=== PATIENT | male | born 1935 | race Caucasian/White ===

== ENCOUNTER 2025-09-20 12:33 | Emergency (ER) | payer MEDICARE ==
[2025-09-20 12:58] LABS: BASOPHILS ABSOLUTE AUTO 0.0 x10^3/uL (0.0-0.2); BASOPHILS PERCENT AUTO 0.3 % (0.2-1.2); EOSINOPHILS ABSOLUTE AUTO 0.1 x10^3/uL (0.0-0.5); EOSINOPHILS PERCENT AUTO 0.9 % (0.0-4.0); IMMATURE GRAN ABSOLUTE AUTO 0.02 x10^3/uL (0.00-0.07); IMMATURE GRAN PERCENT AUTO 0.30 % (0.00-0.43); LYMPHOCYTES ABSOLUTE AUTO 2.8 x10^3/uL (1.0-4.8); LYMPHOCYTES PERCENT AUTO 42.5 % (25.0-50.0); MONOCYTES ABSOLUTE AUTO 0.7 x10^3/uL (0.0-0.8); MONOCYTES PERCENT AUTO 11.1 % (2.0-11.0); NEUTROPHILS ABSOLUTE AUTO 2.9 x10^3/uL (1.8-7.7); NEUTROPHILS PERCENT AUTO 44.9 % (50.0-80.0); PLATELET COUNT,PLT 166 x10^3/uL (130-400); RED BLOOD CELL COUNT 4.56 x10^6/uL (4.5-6.0); WHITE BLOOD CELL COUNT,WBC 6.5 x10^3/uL (4.0-10.0)
[2025-09-20 13:19] LABS: BLOOD UREA NITROGEN,BUN 14 mg/dL (7-18); CARBON DIOXIDE,CO2 30 mmol/L (21-32); CHLORIDE,CL 102 mmol/L (98-107); CREATININE 0.9 mg/dL (0.70-1.30); GLUCOSE RANDOM 81 mg/dL (70-99); POTASSIUM,K 3.8 mmol/L (3.5-5.1); PROTEIN TOTAL,TP 7.8 g/dL (6.4-8.2); SODIUM,NA 142 mmol/L (136-145)
[2025-09-20 13:20] LABS: A/G RATIO 0.90; ALANINE AMINOTRANSFERASE,ALT 22 U/L (16-63); ASPARTATE AMNIOTRANSFERASE,AST 24 U/L (15-37); BILIRUBIN TOTAL 0.9 mg/dL (0.2-1.0); ESTIMATED GFR 82 mL/min (>=60)
[2025-09-20 13:41] LABS: APPEARANCE,URINE CLOUDY (CLEAR); GLUCOSE,URINE NEGATIVE (NEGATIVE); OCCULT BLOOD,URINE NEGATIVE (NEGATIVE)
[2025-09-20 13:50] LABS: SQUAMOUS EPITHELIAL CELLS,UR MODERATE /HPF (NOT SEEN)
[2025-09-20] MEDS: Iopamidol 755 Mg/ML 100 ML Bottle IVPUSH ONE (14:59)
[2025-09-20] MEDS: Take Home: Ciprofloxacin 500 MG Tab, 2 Tab Pack PO ONE (16:56)
== END 2025-09-20 17:03 | disposition home or self-care (01) ==
LOC: VM.ED 12:33
DX: R42 Dizziness and giddiness (principal); N39.0 Urinary tract infection, site not specified; R31.9 Hematuria, unspecified; I10 Essential (primary) hypertension
CPT/HCPCS: 70450; 70496; 80053; 81001; 85025; 87086; 87088; 87186; 99284; A9270; Q9967